=== PATIENT | female | born 1995 | race Two or more races ===

== ENCOUNTER 2018-09-30 15:46 | Outpatient (CLI) | payer OTHER ==
[2018-10-01] MEDS ORDERED: PERCOCET 5-3251 EACH PO (11:37)
[2018-10-01] MEDS ORDERED: COLACE100 MG PO (11:37)
== END 2018-09-30 16:01 | disposition home or self-care (01) ==
LOC: LAB 15:46
DX: K64.4 Residual hemorrhoidal skin tags (principal); K64.0 First degree hemorrhoids; K62.89 Other specified diseases of anus and rectum

== ENCOUNTER 2018-10-01 06:10 | Day surgery (SDC) | payer OTHER ==
[2018-10-01] MEDS ORDERED: COLACE100 MG PO (11:37)
[2018-10-01] MEDS ORDERED: PERCOCET 5-3251 EACH PO (11:37)
== END 2018-10-01 16:15 | disposition home or self-care (01) ==
LOC: CIR.AMB 06:10
DX: K64.4 Residual hemorrhoidal skin tags (principal)

== ENCOUNTER 2023-08-26 11:39 | Outpatient (CLI) | payer OTHER ==
[~2023-08-26 11:39] MED LIST: COLACE100 MG PO; PERCOCET 5-3251 EACH PO; PRENATE ELITE1 EAC2
== END 2023-08-26 15:59 | disposition home or self-care (01) ==
LOC: NST 11:39
PROVIDERS: ATTEND Obstetrics & Gynecology Maternal & Fetal Medicine
DX: Z34.83 Encounter for supervision of other normal pregnancy, third trimester (principal)

== ENCOUNTER 2023-08-26 16:04 | Outpatient (CLI) | payer OTHER ==
[2023-08-26] MEDS ORDERED: RINGERS SOLUTION,LACTATED 1,000 ML IV SCH (16:30)
[2023-08-26 17:12] LABS: HEMATOCRIT 37.3 % (36.0-45.00); MEAN CELL VOLUME 93.9 fL (80.00-100.00); MEAN CORPUSCULAR HEMOGLOBIN 32.6 pg (27.00-32.0); MEAN CORPUSCULAR HGB CONC 34.8 g/dl (32.0-36.0); PLATELET COUNT 178 K/uL (150-450); RED BLOOD COUNT 3.97 M/uL (4.00-6.00); RED CELL DISTRIBUTION WIDTH 13.2 % (11.5-14.5)
[2023-08-26 17:33] LABS: INR < 0.93; PARTIAL THROMBOPLASTIN TIME 27.5 SECONDS (22.0-34.0); PROTHROMBIN TIME 9.8 SECONDS (9.0-11.5)
[2023-08-26 22:14] LABS: URINE APPEARANCE Cloudy; URINE BILIRRUBIN Negative (NEGATIVE); URINE BLOOD Negative; URINE COLOR Yellow; URINE GLUCOSE Negative (NEGATIVE); URINE LEUKOCYTE Negative; URINE NITRATE Negative; URINE PROTEIN Negative (NEGATIVE); URINE UROBILINOGEN 0.2 E.U./dl
[2023-08-26 22:15] LABS: URINE BACTERIA 4637.9 uL (0.0-1933); URINE EPITHELIAL CELLS 21.9 uL (0.0-38.8); URINE WBC 74.5 uL (0.0-23.2)
[2023-08-26 22:26] LABS: URINE CRYSTALS FEW /HPF; URINE MUCUS SCANT
== END 2023-08-27 11:03 | disposition home or self-care (01) ==
LOC: OBS/DEL 16:04
PROVIDERS: Obstetrics & Gynecology Gynecology; ATTEND Obstetrics & Gynecology
DX: O47.03 False labor before 37 completed weeks of gestation, third trimester (principal); Z3A.29 29 weeks gestation of pregnancy

== ENCOUNTER 2023-10-12 11:44 | Outpatient (CLI) | payer OTHER | END 2023-10-12 12:46 | disposition home or self-care (01) | LOC: NST 11:44 | PROVIDERS: ATTEND Obstetrics & Gynecology Maternal & Fetal Medicine | DX: Z34.83 Encounter for supervision of other normal pregnancy, third trimester (principal) ==